=== PATIENT | male | born 1940 | race Caucasian/White ===

== ENCOUNTER 2018-10-16 14:24 | Observation (INO) ==
[2018-10-16] MEDS ORDERED: Acetaminophen 500 MG Tablet PO PRN (23:13)
[2018-10-17 08:14] VITALS: RESP 20
--- NOTE | 2018-10-17 08:18 | P.HPCA ---
History of Present Illness Primary Care Physician: Daniel Ortiz Chief Complaint: Chest pain History of Present Illness: This is an 78-year-old male that presents to the emergency department in [place] to be evaluated for chest discomfort and was subsequently transferred to the chest pain center for further evaluation. 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 Primarily Yakut-speaking. He prefers translation from a nurse that is from his same country for this encounter. Patient does have some cardiac history although his knowledge of that is not that great. He states that he saw a electrical change management administrator in June and had a ablation at the hospital in [place]. He has a change management administrator that he follows in [place] but cannot recall ever being told that he had any heart blockages. States that he was referred to the resource specialist by his primary care physician. After he had EP study he was placed on Eliquis. Yesterday morning he felt weak, decided to check his blood pressure and it was 90/70. His weakness was generalized. He was still able to ambulate and move all extremities. He cannot recall a sensation of heart beating rapidly or irregularly through the symptoms. He also states that he had chest discomfort that he describes as a sharp pain that will last less than a minute. He was in several areas of his chest. It was not tender. But it recurred several times. Never lasting more than a minute. Has no discomfort at this time. Is not feeling weak at this time. His blood pressures in [place] and here have never been hypotensive. He cannot recall ever having a heart catheterization and cannot recall ever having a stress test of any kind. History of hypertension, diabetes. Does not know if he has heart disease. Does not know if he has hyperlipidemia. Sounds like he has had arrhythmia and likely atrial fibrillation but he has never heard of that before. He is on Eliquis. He does not think he has family history of heart disease. He is a non-smoker. - Diagnosis (1) Chest pain (2) Hypertension (3) Diabetes Review of Systems General: Patient denies fevers, chills, and recent travel. HEENT: Patient denies headache, sore throat, difficulty swallowing. Cardiovascular: Has the chest discomfort as mentioned above. Denies sensation of heart beating rapidly or irregularly. No syncope. Denied diaphoresis. Respiratory: Denies shortness of breath or inspirational chest discomfort. Denies coughing wheezing or hemoptysis. GI: Patient denies nausea, vomiting, diarrhea, abdominal pain, bloody stools. Musculoskeletal: Patient denies joint pain or edema. Denies calf pain or edema. Neurovascular: Patient denies numbness, tingling, weakness in extremities. Denies headache. Endocrine: Denies polyuria and polydipsia. Hematologic: Denies easy bruising. Skin: Denies rash or itching. PMFSH - History History Provided By: Patient - Medical History Medical History: Medical History (Last Updated 10/16/18 @ 15:05 by Neris Hanson RN) Atrial fibrillation Diabetes Hypertension Umbilical hernia - Surgical History Surgical History: Surgical History (Last Updated 10/16/18 @ 15:05 by Neris Hanson RN) S/P ablation of atrial fibrillation - Tobacco History Second Hand Smoke Exposure: No Tobacco Use In Past 30 Days: No Smoking Status: Former smoker Tobacco Type: Cigarettes - Alcohol History How Often Do You Have a Drink Containing Alcohol: Never - Substance Use History Substance History: No History of Abuse Medications and Allergies Active Medications: Active Medications Acetaminophen (Tylenol) 500 mg PO Q4H PRN PRN Reason: HEADACHE Ondansetron HCl (Zofran Inj) 4 mg IV.PUSH Q6H PRN PRN Reason: NAUSEA Allergies Allergy/AdvReac Type Severity Reaction Status Date / Time No Known Allergies Allergy Verified 10/16/18 15:24 Home Medications Medication Instructions Recorded Confirmed Type amlodipine 5 mg PO DAILY 10/16/18 10/16/18 History apixaban [Eliquis] 2.5 mg PO BID 10/16/18 10/16/18 History bumetanide 1 mg PO DAILY 10/16/18 10/16/18 History hydralazine 50 mg PO TID 10/16/18 10/16/18 History irbesartan 300 mg PO DAILY 10/16/18 10/16/18 History isosorbide mononitrate 60 mg PO DAILY 10/16/18 10/16/18 History metformin 500 mg PO BID 10/16/18 10/16/18 History potassium chloride 20 meq PO DAILY 10/16/18 10/16/18 History sotalol 80 mg PO Q12H 10/16/18 10/16/18 History Fish Oil 10/17/18 History clonidine 10/17/18 History vit D3-vit [id number] 10/17/18 History vit c-ascorbate Ca-ascorb sod 10/17/18 History Exam Vital signs: Vital Signs 10/16/18 22:45 10/17/18 00:00 10/17/18 04:00 Temperature 96.3 F L Pulse Rate 65 70 60 Respiratory Rate 17 Blood Pressure 127/60 Pulse Oximetry 98 10/17/18 05:05 Temperature Pulse Rate Respiratory Rate Blood Pressure 165/77 H Pulse Oximetry Intake & Output 10/16/18 10/17/18 10/17/18 18:59 06:59 18:59 Intake Total 360 / 360 Output Total 650 / 650 Balance -290 / -290 Intake: Oral 360 / 360 Output: Urine 650 / 650 Other: # Voids 2 Narrative: GENERAL: This is a well-nourished, well-developed patient, in no apparent distress. Patient speaks in clear complete sentences. Patient is pleasant. HEENT: Head is atraumatic and normocephalic. Neck is supple without lymphadenopathy and trachea is midline. No JVD or carotid bruits. CARDIOVASCULAR: Regular rate and rhythm without murmurs, gallops, or rubs. RESPIRATORY: Clear to auscultation. Breath sounds equal bilaterally. No wheezes , rales, or rhonchi. Chest wall is nontender. No use of accessory muscles. GASTROINTESTINAL: Abdomen is nontender, nondistended. Abdomen soft. No obvious pulsatile mass or bruit. No CVA tenderness. Strong femoral pulses bilaterally. Normal bowel sounds in all quadrants. MUSCULOSKELETAL: Patient is moving upper and lower extremities freely. No calf tenderness or edema, no Homans sign. Strong pulses in upper and lower extremities. NEUROLOGICAL: Patient is alert and oriented. Cranial nerves 2-12 are grossly intact. No focal deficits and speech is clear. SKIN: No rash and turgor is normal. Results Cardiac Enzymes 10/16/18 10/17/18 Range/Units 21:00 00:37 Troponin I 0.03 0.04 (0.02-0.05) ng/mL Intake and Output 10/16/18 10/17/18 10/17/18 22:59 06:59 14:59 Intake Total 360 / 360 Output Total 650 / 650 Balance -290 / -290 Intake: Oral 360 / 360 Output: Urine 650 / 650 Other: # Voids 2 EKG interpretations - EKG EKG shows: bradycardia (EKGs have been sinus rhythm to sinus bradycardia without significant ST segment depressions or elevations. Right bundle branch block is present.), sinus rhythm (EKGs have been sinus rhythm to sinus bradycardia, right bundle branch block.) Caprini VTE Risk Assessment Caprini VTE Risk Assessment: Moderate/High Risk (score >= 2) Caprini Risk Assessment Model: Point Value = 1 Point Value = 2 Point Value = 3 Point Value = 5 Age 41-60 Minor surgery BMI > 25 kg/m2 Swollen legs Varicose veins or History of unexplained or recurrent spontaneous Oral contraceptives or hormone replacement Sepsis (< 1 month) Serious lung disease, including pneumonia (< 1 month) Abnormal pulmonary function Acute myocardial infarction Congestive heart failure (< 1 month) History of inflammatory bowel disease Medical patient at bed rest Age 61-74 Arthroscopic surgery Major open surgery (> 45 min) Laparoscopic surgery (> 45 min) Malignancy Confined to bed (> 72 hours) Immobilizing plaster cast Central venous access Age >= 75 History of VTE Family history of VTE Factor V Leiden Prothrombin [id number] Lupus anticoagulant Anticardiolipin antibodies Elevated serum homocysteine Heparin-induced thrombocytopenia Other congenital or acquired thrombophilia Stroke (< 1 month) Elective arthroplasty Hip, pelvis, or leg fracture Acute spinal cord injury (< 1 month) Prophylaxis Regimen: Total Risk Factor Score Risk Level Prophylaxis Regimen 0-1 Low Early ambulation 2 Moderate Order ONE of the following: *Sequential Compression Device (SCD) *Heparin 5000 units SQ BID 3-4 Higher Order ONE of the following medications: *Heparin 5000 units SQ TID *Enoxaparin/Lovenox 40 mg SQ daily (WT < 150 kg, CrCl > 30 mL/min) *Enoxaparin/Lovenox 30 mg SQ daily (WT < 150 kg, CrCl > 10-29 mL/min) *Enoxaparin/Lovenox 30 mg SQ BID (WT < 150 kg, CrCl > 30 mL/min) AND/OR *Sequential Compression Device (SCD) 5 or more Highest Order ONE of the following medications: *Heparin 5000 units SQ TID (Preferred with Epidurals) *Enoxaparin/Lovenox 40 mg SQ daily (WT < 150 kg, CrCl > 30 mL/min) *Enoxaparin/Lovenox 30 mg SQ daily (WT < 150 kg, CrCl > 10-29 mL/min) *Enoxaparin/Lovenox 30 mg SQ BID (WT < 150 kg, CrCl > 30 mL/min) AND *Sequential Compression Device (SCD) Assessment and Plan - Assessment (1) Chest pain Code(s): R07.9 - Chest pain, unspecified Status: Acute (2) Hypertension Code(s): I10 - Essential (primary) hypertension Status: Acute (3) Diabetes Code(s): E11.9 - Type 2 diabetes mellitus without complications Status: Acute - Plan * Chest pain: Patient has had serial cardiac enzymes and EKGs for ruling out purposes. He will be seen by Dr. Krueger of cardiology in the chest pain center. I have placed a call out for the patient's change management administrator Dr. Montoya to hopefully obtain his cardiac history to make a further plan. Patient may need Lexiscan if unable to get records or if it is determined that he has not had stress testing heart catheterization in the past. He will need follow-up with his PCP and change management administrator after being discharged. He should return to ED for interval issues. * Diabetes: Hold metformin. Sliding scale insulin as needed while in chest pain center. Follow diabetic diet. Resume medication at discharge. * Hypertension: Continue medication. Patient is stable at this time. He is agreeable to this plan. H&P: Quality - VTE Deep Vein Thrombosis/Pulmonary Embolism Present on Admission: No
[2018-10-17] MEDS ORDERED: Dextrose 50% in Water 50 ML Vial IV.PUSH PRN (08:25)
[2018-10-17] MEDS ORDERED: Isosorbide Mononitrate 60 MG ER 24HR Tablet (Imdur) PO SCH (09:00)
[2018-10-17] MEDS ORDERED: amLODIPine 5 MG Tablet PO SCH (09:00)
[2018-10-17] MEDS ORDERED: Aspirin 325 MG Tablet PO SCH (09:00)
--- NOTE | 2018-10-17 09:01 | P.PNCA ---
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 Patient was discussed with the physician at that facility and then transferred for further evaluation of the chest pain center in [place]. He was subsequently seen and evaluated by the physician paper finisher who also talked to his primary care physician and then seen and examined by me personally. Currently he is pain-free and quite comfortable. I am in agreement with documentation is entered by the physician paper finisher. After discussion regarding assessment and further intervention a nuclear stress test was ordered. 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 If positive he will be referred for further evaluation. Medications and Allergies Active Medications: Active Medications Acetaminophen (Tylenol) 500 mg PO Q4H PRN PRN Reason: HEADACHE Albuterol (Duoneb Neb (Prn)) 1 ampul NEB Q4HR NEB PRN PRN Reason: SHORTNESS OF BREATH/WHEEZING Amlodipine Besylate (Norvasc) 5 mg PO DAILY [facility] Aspirin (Aspirin) 325 mg PO DAILY [facility] Bumetanide (Bumex) 1 mg PO DAILY [facility] Dextrose (D50w Vial) 50 ml IV.PUSH UNSCH PRN PRN Reason: PER HYPOGLYCEMIA PROTOCOL Glucagon (Glucagon Inj) 1 mg OTHER PRN PRN PRN Reason: for Hypoglycemia Protocol Insulin Human Regular (Novolin R Correctional Sugar Inj) 0 units SQ ACHS [facility]LLY; Protocol Isosorbide Mononitrate (Imdur) 60 mg PO DAILY [facility] Ondansetron HCl (Zofran Inj) 4 mg IV.PUSH Q6H PRN PRN Reason: NAUSEA Potassium Chloride (K-Dur) 20 meq PO DAILY [facility] Sotalol HCl (Betapace) 80 mg PO Q12H [facility] Allergies Allergy/AdvReac Type Severity Reaction Status Date / Time No Known Allergies Allergy Verified 10/16/18 15:24 Home Medications Medication Instructions Recorded Confirmed Type amlodipine 5 mg PO DAILY 10/16/18 10/16/18 History apixaban [Eliquis] 2.5 mg PO BID 10/16/18 10/16/18 History bumetanide 1 mg PO DAILY 10/16/18 10/16/18 History hydralazine 50 mg PO TID 10/16/18 10/16/18 History irbesartan 300 mg PO DAILY 10/16/18 10/16/18 History isosorbide mononitrate 60 mg PO DAILY 10/16/18 10/16/18 History metformin 500 mg PO BID 10/16/18 10/16/18 History potassium chloride 20 meq PO DAILY 10/16/18 10/16/18 History sotalol 80 mg PO Q12H 10/16/18 10/16/18 History Fish Oil 10/17/18 History clonidine 10/17/18 History vit D3-vit [id number] 10/17/18 History vit c-ascorbate Ca-ascorb sod 10/17/18 History Physical Exam Vital signs: Vital Signs 10/16/18 22:45 10/17/18 00:00 10/17/18 04:00 Temperature 96.3 F L Pulse Rate 65 70 60 Respiratory Rate 17 Blood Pressure 127/60 Pulse Oximetry 98 10/17/18 05:05 10/17/18 08:00 Temperature 97.6 F Pulse Rate 69 Respiratory Rate 20 Blood Pressure 165/77 H 173/78 H Pulse Oximetry 96 Intake & Output 10/16/18 10/17/18 10/17/18 18:59 06:59 18:59 Intake Total 360 / 360 Output Total 650 / 650 Balance -290 / -290 Weight 88.8 kg Intake: Oral 360 / 360 Output: Urine 650 / 650 Other: # Voids 2 Narrative: Older gentleman sleeping peacefully when I entered the room. Neck supple no JVD masses nodes or bruits Chest was nontender clear to auscultation with no rales wheezes or rhonchi Cardiovascular PMI was not displaced there is a regular rhythm no gallops rubs or murmurs are noted. Abdomen soft nontender no guarding or rebound Results Cardiac Enzymes 10/16/18 10/17/18 Range/Units 21:00 00:37 Troponin I 0.03 0.04 (0.02-0.05) ng/mL Intake and Output 10/16/18 10/17/18 10/17/18 22:59 06:59 14:59 Intake Total 360 / 360 Output Total 650 / 650 Balance -290 / -290 Intake: Oral 360 / 360 Output: Urine 650 / 650 Other: # Voids 2 Weight 88.8 kg Patient Weight 10/18/18 06:59 Weight 88.8 kg Assessment and Plan - Assessment (1) Chest pain Code(s): R07.9 - Chest pain, unspecified Status: Acute Plan: We will evaluate the patient since she is ruled out for ACS using Lexiscan. If this is negative he will be discharged back to his personal physicians care if positive further evaluation will be recommended. He is currently resting comfortably with no problems he has apparently been stable on his medications and no further changes anticipated at this time. (2) Hypertension Code(s): I10 - Essential (primary) hypertension Status: Acute (3) Diabetes Code(s): E11.9 - Type 2 diabetes mellitus without complications Status: Acute - Plan * Chest pain: Patient has had serial cardiac enzymes and EKGs for ruling out purposes. He will be seen by Dr. Krueger of cardiology in the chest pain center. I have placed a call out for the patient's mobile nurse Dr. Montoya to hopefully obtain his cardiac history to make a further plan. Patient may need Lexiscan if unable to get records or if it is determined that he has not had stress testing heart catheterization in the past. He will need follow-up with his PCP and mobile nurse after being discharged. He should return to ED for interval issues. * Diabetes: Hold metformin. Sliding scale insulin as needed while in chest pain center. Follow diabetic diet. Resume medication at discharge. * Hypertension: Continue medication. Patient is stable at this time. He is agreeable to this plan.
--- NOTE | 2018-10-17 09:04 | ECG ---
Date Performed: 10/16/2018 Time Performed: 21:48:22 PTAGE: 78 years EKG: SINUS BRADYCARDIA RIGHT BUNDLE BRANCH BLOCK ABNORMAL ECG No significant change NO PREVIOUS TRACING DOCTOR: Christiano Krueger Interpretating Date/Time 10/17/2018 09:03:02
--- NOTE | 2018-10-17 09:04 | ECG ---
Date Performed: 10/17/2018 Time Performed: 00:54:54 PTAGE: 78 years EKG: Sinus rhythm RIGHT BUNDLE BRANCH BLOCK ABNORMAL ECG No significant change NO PREVIOUS TRACING DOCTOR: Christiano Krueger Interpretating Date/Time 10/17/2018 09:02:36
[2018-10-17] MEDS ORDERED: Regadenoson Inj 0.4 MG/5 ML Syringe IV.PUSH ONE (10:34)
[2018-10-17] MEDS ORDERED: Insulin NovoLIN Regular Correctional Sugar Inj SQ SCH (12:00)
[2018-10-17 12:19] VITALS: PULSE 67; TEMP 98.1; O2SAT 98
--- NOTE | 2018-10-17 12:31 | NM ---
EXAM DATE: 10/17/2018 12:21 PM EST AGE/SEX: 78 years / Male INDICATIONS:Angina. Atrial fibrillation Mid chest pain for one day. CLINICAL DATA: This is the patient's initial encounter. Patient reports that signs and symptoms have been present for 1 day and indicates a pain score of 3/10. MEDICAL/SURGICAL HISTORY: Diabetes mellitus type II. Hypertension. Umbilical hernia repair. COMPARISON: No prior exams available for comparison. No external comparison. DOSE: 8.7 mCi Tc 99m Myoview at rest 26.1 mCi [id number] at stress 0.4 mg Lexiscan STRESS SYMPTOMS: Dyspnea. EJECTION FRACTION: 65 % TECHNIQUE: The patient underwent pharmacologic stress with infusion of prescribed dose. Continuous ECG tracing was monitored during stress. Gated SPECT imaging was performed after stress and conventi onal SPECT imaging was performed at rest. The examination was performed on a SPECT/CT scanner, both attenuation and non-corrected datasets were reviewed. FINDINGS: Distribution: The maximum perfused segment at stress is in the anterolateral wall. Perfusion Study: The pattern of perfusion at stress is within normal limits. Gated Study: There are intact wall motion and wall thickening without hypokinetic or dyskinetic segm ents. The ejection fraction is calculated at 65%. RISK CATEGORY: Low (<1% Annual Motality Rate) CONCLUSION: 1. Negative examination. 2. No evidence of fixed or stress-induced reversible perfusion abnormality. 3. Normal wall motion and ejection fraction Electronically signed by: Shahzad Barger MD 10/17/2018 12:30 PM EST
[2018-10-17] MEDS ORDERED: HYDRALAZINE 50 MG PO SCH (13:00)
[2018-10-17 14:23] VITALS: BP 146/65
--- NOTE | 2018-10-19 16:02 | TR ---
Date Performed: 10/17/2018 Time Performed: 11:20:13 DOCTOR: Marysol Michael DRUG LIST: CLINICAL HISTORY: REASON FOR TEST: Angina REASON FOR ENDING: OBSERVATION: CONCLUSION: Lexiscan stress test was performed under standard four minute protocol. Radionuclid e was injected one minute prior to ending the test. No electrocardiographic abormalities were present to suggest ischemia. Nuclear imaging and interpretation are pending. COMMENTS: Lexiscan stress test was performed under standard four minute protocol. Radionuclide was injected one minute prior to ending the test. No electrocardiographic abormalities were present t o suggest ischemia. Nuclear imaging and interpretation are pending.
== END 2018-10-17 16:20 | disposition home or self-care (01) ==
LOC: NEPFCDU 14:24 → NEDDLT 14:24
PROVIDERS: ADMIT Internal Medicine Interventional Cardiology; ATTEND Internal Medicine Interventional Cardiology